=== PATIENT | female | born 1935 | race Caucasian/White ===

== ENCOUNTER 2018-04-14 08:55 | Outpatient (RCR) | payer MEDICARE ==
[2018-03-25 07:21] VITALS: BP 129/81
--- NOTE | 2018-03-25 08:35 | NUR ---
03/24/18 0852 Pt in office for monthly vitals. Vitals stable and charted. Pt states no new medication changes since last monthly treatment. Pt states no pain today. Pt has follow up with PCP in April. Will continue to follow up.
--- NOTE | 2018-03-25 13:54 | NUR ---
1051 Patient states she is not feeling well. Pt states she has "heaviness" in her head and chest. Patients vitals are BP 140/87, T 98.2, P86, RR 16. Pt states she has felt like this before. Pt states she is not sure if its allergies or head cold. Pt states she is not anxious and denies any suicidal thoughts. Pt states she would like to go back to group. Pt advised that if she continues to feel this way and/or feels worse, to make RN aware. Will continue to monitor the patient.
--- NOTE | 2018-03-29 07:16 | NUR ---
03/26/18 7396 Pt states she will not be in today as she has a headache. Will follow up with pt on Thursday.
--- NOTE | 2018-03-31 10:47 | NUR ---
0750 Pt in office today stating that she called out of Treatment team on Thursday because she fell on afternoon. Pt states she fell by her pool. Pt states her was there and a nurse was there to assist her. Pt showed RN her right side of her lower leg and arm. Abrasions noted. Skin is intact and healing well. Pt states it is getting better. No s/s of infection. No pain noted at this time. Will continue to monitor pt.
--- NOTE | 2018-04-06 11:43 | NUR ---
04/02/18 Patient in today for Treatment team review. Pt presents clean and neat, alert and oriented x 4. Pt is in a pleasant mood, denies suicidal thoughts at present time. Pt states continued depression. Pt states she wants to continue with IOP at 2x/week. Pt will follow up in one month. Treatment team concluded.
[~2018-04-14] VITALS: Ht 154.9 cm; Wt 72.6 kg
[~2018-04-14 08:55] MED LIST: B-12500 MC1 PO; BETIMOL0.51 OU; BL MAGNESIUM250 MG PO; BRINTELLIX10 MG PO; CALCIUM500 M2 PO; CALCIUM600 M1 PO; CYMBALTA60 MG PO; D31000 UNIT PO; EQL ANTACID U1000 MG; EQL ASPIRIN LOW81 MG PO; FLEXERIL PO; KLONOPIN0.5 MG PO; MAGNESIUM400 M1 PO; METFORMIN500 M2 PO; NORTRIPTYLIN25 MG PO; PROBIOTI2 PO; SIMVASTATIN40 MG PO; TRINTELLIX20 MG PO
[2018-05-05] MEDS ORDERED: OXYBUTYNIN10 MG PO (10:54)
[2018-05-14] MEDS ORDERED: LATANOPROST0.005 % OU (07:44)
[2018-05-14] MEDS ORDERED: OXYBUTYNIN10 MG PO (07:44)
== END 2018-04-15 23:59 | disposition still patient (30) ==
LOC: PATHWAYS 08:55
PROVIDERS: ATTEND Specialist
DX: F33.8 Other recurrent depressive disorders (principal); F41.1 Generalized anxiety disorder